=== PATIENT | male | born 2005 | race Caucasian/White ===

== ENCOUNTER 2025-07-21 23:58 | Emergency (ER) | payer OTHER ==
[~2025-07-21] VITALS: Ht 182.9 cm; Wt 107.0 kg
--- NOTE | 2025-07-22 01:12 | DVH ---
CLINICAL INDICATION: left index finger pain TECHNIQUE: 3 views XY L 2ND FINGER XRAY Comparison: None FINDINGS: Soft tissue defect along the palmar aspect of the index digit, from the level of the proximal interph alangeal joint to the distal phalangeal base. Diffuse soft tissue swelling. Minimal, superficial della earing radiodense debris. No fracture or joint malalignment. IMPRESSION: 1. Palmar soft tissue injury without acute osseous finding of the left index digit.
[2025-07-22 02:07] VITALS: BP 125/72; PULSE 98; RESP 19; TEMP 98.3; O2SAT 98
[2025-07-22] MEDS: LIDOCAINE 1% HCL (LOCAL ANESTH.) INJ 20ML MDV ONE (02:10)
[2025-07-22] MEDS ORDERED: IBUP-1456 PO (02:16)
[2025-07-22] MEDS ORDERED: CLIN1CAP70 PO (02:16)
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
[2025-07-22] MEDS: TETANUS-DIPTH-ACEL PERTUSSIS 0.5ML SYR Tdap IM ONE (02:53)
[2025-07-22] MEDS: cefTRIAXone SOD 1,000 MG VL IM ONE (02:54)
== END 2025-07-22 03:05 | disposition home or self-care (01) ==
LOC: ER 23:58
DX: S61.211A Laceration without foreign body of left index finger without damage to nail, initial encounter (principal); W45.8XXA Other foreign body or object entering through skin, initial encounter; Y93.89 Activity, other specified; Y92.89 Other specified places as the place of occurrence of the external cause; Y99.8 Other external cause status
CPT/HCPCS: 12002; 73140; 90471; 90715; 96372; 99284; J0696; J2003

== ENCOUNTER 2025-08-01 17:56 | Emergency (ER) | payer OTHER ==
[~2025-08-01] VITALS: Ht 185.4 cm; Wt 103.3 kg
[~2025-08-01 17:56] MED LIST: CLIN1CAP70 PO; IBUP-1456 PO
[2025-08-01 19:59] VITALS: BP 145/94; PULSE 91; RESP 18; TEMP 97.7; O2SAT 97
--- NOTE | 2025-08-01 20:04 | ED.PDOC ---
History of Present Illness(SKN HPI Comments 19-year-old male presents to ER for suture removal. Patient was seen and evaluated in ER here 11 days ago for laceration of left index finger and had eight stitches placed to left index finger at that time and presents to ER today for suture removal. He reports that the wound appeared to heal well without any complication and denies any current pain. Denies fever, skin drainage, numbness/tingling or any further symptoms/complaints Chief Complaint: Suture Removal Time Seen by MD: 18:15 Primary Care Provider: UNKNOWN History of Present Illness: Nurses Notes, Medications, Allergies Allergies: Coded Allergies: NO KNOWN ALLERGIES (Unverified , 07/22/25) Home Meds Active Scripts Ibuprofen (Ibuprofen) 800 Mg Tab, 1 TAB PO TID PRN, #30 TAB 0 Refills Prov:AUGUSTUS MONAHAN 07/22/25 Clindamycin Hcl (Clindamycin Hcl) 300 Mg Cap, 1 CAP PO TID for 7 Days, #21 CAP 0 Refills Prov:AUGUSTUS MONAHAN 07/22/25 Information Source: Patient Mode of Arrival: Ambulatory Past Medical History PAST MEDICAL HISTORY: Denies Surgical History: Denies all surgeries Family History Family History: Unknown Social History Smoker: Non-Smoker Alcohol: Denies ETOH Use Drugs: Denies Drug Use Lives In: Home Constitutional: denies: chills, diaphoresis, fatigue, fever, malaise, sweats, weakness, others EENTM: denies: blurred vision, double vision, ear bleeding, ear discharge, ear drainage, ear pain, ear ringing, eye pain, eye redness, hearing loss, mouth pain, mouth swelling, nasal discharge, nose bleeding, nose congestion, nose pain , photophobia, tearing, throat pain, throat swelling, voice changes, others Respiratory: denies: cough, hemoptysis, orthopnea, SOB at rest, shortness of breath, SOB with excertion, stridor, wheezing, others Cardiovascular: denies: chest pain, dizzy spells, diaphoresis, Dyspnea on exertion, edema, irregular heart beat, left arm pain, lightheadedness, palpitations, PND, syncope, others Gastrointestinal: denies: abdomen distended, abdominal pain, blood streaked bowels, constipated, diarrhea, dysphagia, difficulty swallowing, hematemesis, melena, nausea, poor appetite, poor fluid intake, rectal bleeding, rectal pain, vomiting, others Genitourinary: denies: burning, dysuria, flank pain, frequency, hematuria, incontinence, penile discharge, penile sore, pain, testicle pain, testicle swelling, urgency, others Neurological: denies: dizziness, fainting, headache, left sided numbness, left sided weakness, numbness, paresthesia, pre-existing deficit, right sided numbness, right sided weakness, seizure, speech problems, tingling, tremors, weakness, others Musculoskeletal: denies: back pain, gout, joint pain, joint swelling, muscle pain, muscle stiffness, neck pain, others Integumetry: reports: others (As stated in HPI) Allergic/Immunocompromised: denies: Difficulty Healing, Frequent Infections, Hives, Itching, others Hematologic/Lymphatic: denies: anemia, blood clots, easy bleeding, easy bruising, swollen glands, others Endocrine: denies: excessive hunger, excessive sweating, excessive thirst, excessive urination, flushing, intolerance to cold, intolerance to heat, unexplained weight gain, unexplained weight loss, others Psychiatric: denies: anxiety, bipolar disorder, depression, hopeless, panic disorder, schizophrenia, sleepless, suicidal, others Physical Exam General Appearance: No Apparent Distress HEENT: PERRL/EOMI Neck: Full Range of Motion, Non-Tender, Normal Respiratory: Chest Non-Tender, Lungs Clear, No Accessory Muscle Use, No Respiratory Distress, Normal Breath Sounds Cardiovascular: No Murmur, No Gallop, Regular Rate/Rhythm Breast Exam: Deferred Gastrointestinal: NOT DONE Genitalia: Deferred Pelvic: Deferred Rectal: Deferred Extremities: Normal capillary refill, Normal range of motion Neurologic: Alert, No Motor Deficits, Normal Affect, Normal Mood, No Sensory Deficits Cerebellar Function: Normal Reflexes: Normal Skin: Dry, Normal Color, Warm, Other (Eight stitches in place to healed wound of left index finger without any signs of infection appreciated.) Peripheral Pulses: 2+ Radial (R), 2+ Radial (L), 2+ Brachial (R), 2+ Brachial (L) Lymphatic: No Adenopathy Was a procedure done? Was a procedure done?: No Sedation Sedation?: No Differential Diagnosis (INTG) Differential Diagnosis: Abrasion, Neurovascular Injury Differential Diagnosis: Cellulitis, Retained Foreign Body, Other X-Ray, Labs, Meds, VS Vital Signs Date Time Temp Pulse Resp B/P (MAP) Pulse Ox O2 Delivery O2 Flow Rate FiO2 08/01/25 19:59 Room Air* 0 21 08/01/25 19:59 97.7 91 18 145/94 (111) 97 97.7 08/01/25 17:57 97.7 91 18 145/94 97 97.7 Previous chart visit reviewed All sutures removed at bedside without complication Advised to follow up with PCP in 1-2 days Patient verbalized understanding and agreeable with current plan of care Advised to return to ER immediately if symptoms worsen Time of 1ST Reevaluation: 19:44 Reevaluation 1ST: N/A Patient Education/Counseling: Diagnosis, Treatment, Prognosis, Need For Follow Up Family Education/Counseling: No Family Present SEPSIS Sepsis Screen Date sepsis recognized/suspect: Aug 01, 2025 Time Sepsis recognized/suspect: 1757 Recent Procedure: No On Antibiotic Therapy: No Respiratory Rate >20: No Heart Rate >90: No Temp<36 C (96.8 F) or >38.3 C: No SBP <90 or MAP <65 mmHG: No New Acute Mental Status Change: No Is the patient on CPAP, BIPAP,: No Vital Signs Date Time Temp Pulse Resp B/P (MAP) Pulse Ox O2 Delivery O2 Flow Rate FiO2 08/01/25 19:59 Room Air* 0 21 08/01/25 19:59 97.7 91 18 145/94 (111) 97 97.7 08/01/25 17:57 97.7 91 18 145/94 97 97.7 Departure 1 Departure Time of Disposition: 20:04 Impression: Primary Impression: Laceration of index finger Qualified Codes: S61.211D - Laceration without foreign body of left index finger without damage to nail, subsequent encounter Additional Impression: Visit for suture removal Disposition: 01 HOME / SELF CARE / HOMELESS Condition: Stable Discharged With: Self Critical Care Note Critical Care Time?: No Stability Stability form required: No Heart Score Heart Score: Heart Score Response (Comments) Value History N/A 0 EKG N/A 0 Age N/A 0 Risk Factors N/A 0 Troponin N/A 0 Total 0 AUGUSTUS MONAHAN Aug 01, 2025 20:04
== END 2025-08-01 20:10 | disposition home or self-care (01) ==
LOC: ER 17:56
DX: S61.211D Laceration without foreign body of left index finger without damage to nail, subsequent encounter (principal); Z48.02 Encounter for removal of sutures; Z79.899 Other long term (current) drug therapy; X58.XXXD Exposure to other specified factors, subsequent encounter